=== PATIENT | female | born 1995 | race Caucasian/White ===

== ENCOUNTER 2018-01-24 12:39 | Outpatient (CLI) | payer OTHER ==
--- NOTE | 2018-01-24 14:03 | Ultrasound Report ---
Procedure Date: 01/24/2018 Accession Number: [id number] / [id number] Procedure: US - Breast Unilateral Limited CPT Code: FULL RESULT: EXAM: Breast Unilateral Limited DATE: 01/24/2018 1:45 PM CLINICAL HISTORY: LT BREAST LUMP TECHNIQUE: Grayscale and limited grayscale images of the left breast including the area of the reported palpable lump were obtained. COMPARISON: None FINDINGS: Ultrasound of all 4 quadrants of the left breast was performed. Normal tissue parenchyma is identified. No collection or mass lesion is seen. No sonographically suspicious features are identified. IMPRESSION: Normal study. BI-RADS 1
== END 2018-01-24 12:40 | disposition home or self-care (01) ==
LOC: DI 12:39
PROVIDERS: ATTEND Physician Assistant
DX: N63.24 Unspecified lump in the left breast, lower inner quadrant (principal)
CPT/HCPCS: 76642